=== PATIENT | female | born 1955 | race Caucasian/White ===

== ENCOUNTER 2016-11-26 15:17 | Emergency (ER) | payer BC, MEDICARE ==
[2016-11-26 16:23] LABS: Hematocrit 37.8 % (37.0-47.0); Hemoglobin 12.8 gm/dL (12.5-16.0); Mean Cell Volume 91.1 fl (78-100); Mean Corpuscular Hemoglobin 30.8 pg (27-31); Mean Corpuscular Hgb Conc 33.9 g/dl (32-36); Mean Platelet Volume 8.3 fl (6.0-9.5); Neutrophil # 4.2 K/mm3 (1.3-6.0); Neutrophil % 54.4 % (42-75.0); Platelet Count 352 K/mm3 (150-450); Red Blood Count 4.15 M/mm3 (4.2-5.4); Red Cell Distribution Width 12.4 % (11.5-14.0); White Blood Count 7.8 K/mm3 (4.0-10.5)
[2016-11-26 16:41] LABS: ALT 22 U/L (19-67); AST 13 U/L (0-48); Albumin * 3.7 gm/dl (3.4-5.0); Alkaline Phosphatase * 106 U/L (50-170); Anion Gap 11.3 mmol/L (6.8-13.8); Bilirubin, Total 0.3 mg/dL (0.0-1.1); Blood Urea Nitrogen 9 mg/dL (3-23); Ca. Corrected For Albumin 8.8 mg/dL (8.4-10.2); Calcium * 8.9 mg/dL (7.9-10.9); Carbon Dioxide 29.9 mmol/L (24-32.6); Chloride 107 mmol/L (97-106); Glucose * 113 mg/dL (70-110); Potassium 4.2 mmol/L (3.4-4.6); Sodium 144 mmol/L (132-142); Total Protein 7.4 gm/dL (6.2-8.2); Troponin I Less than 0.017 ng/ml (0.00-0.10)
--- NOTE | 2016-11-26 16:45 | ERNOTE ---
Medical Problem HPI - Narrative Date of Service: 11/26/16 - General Chief Complaint: General Assessment Time Seen by Provider: 11/26/16 15:42 Source: patient, family, RN notes reviewed Exam Limitations: no limitations - Immun/Allergies/Home Medications Immunizations: IMMUNIZATION HX Immunizations Up to Date Yes Allergies/Adverse Reactions: Allergies latex Allergy (Verified 11/26/16 15:35) Home Medications: HOME MEDICATIONS Amox Tr/Potassium Clavulanate [Augmentin 875-125 Tablet] 875 mg PO Q12H #20 tab 11/26/16 [Last Taken Unknown] Aspirin [Aspirin Enteric Coated] 81 mg PO DAILY 11/26/16 [Last Taken Unknown] Calcium Carbonate/Vitamin D3 [Calcium 500+D Tablet Chew] 2 each PO DAILY [Last Taken Unknown] Cyanocobalamin [Vitamin B-12] 1,000 mcg PO DAILY 11/26/16 [Last Taken Unknown] FLUoxetine HCL [Prozac] 60 mg PO DAILY 11/26/16 [Last Taken Unknown] Flaxseed Oil [Flax Seed Oil] 1,000 mg PO DAILY 11/26/16 [Last Taken Unknown] Fluconazole [Diflucan] 150 mg PO ONCE #2 tab 11/26/16 [Last Taken Unknown] Glucosam/Chondr/Collagn/Hyalur [Glucosamine & Chondroitin Cap] 1 each PO DAILY 11/26/16 [Last Taken Unknown] Iron,Carb/Vit C/Vit B12/Folic [Iron 100 Plus Tablet] 65 mg PO DAILY 11/26/16 [ Last Taken Unknown] Loratadine [Claritin] 10 mg PO DAILY 11/26/16 [Last Taken Unknown] Omeprazole [Prilosec] 20 mg PO DAILY 11/26/16 [Last Taken Unknown] Pravastatin Sodium [Pravachol] 20 mg PO DAILY 11/26/16 [Last Taken Unknown] Venlafaxine HCl [Effexor Xr] 150 mg PO DAILY 11/26/16 [Last Taken Unknown] Zolpidem Tartrate [Ambien] 10 mg PO HS PRN 11/26/16 [Last Taken Unknown] metFORMIN HCL [Glumetza] 2 tab PO BID 11/26/16 [Last Taken Unknown] - History of Present History Narrative: Allison is a 61 year old female who presents to the ED by private vehicle with her for "feeling crappy" for approximately a week. She had been on Januvia and read that it caused joint pain, so she discontinued it on her own. She then saw her PCP a few days later. She was feeling slightly better, so the symptoms were contributed to the medication. She has numerous vague complaints. She report diffuse chest pain that has been ongoing for several days that comes and goes. She also has pain in her left lower jaw. This has been ongoing for 3 or 4 months. She has even been to a dentist and an oral surgeon. She has not been taking anything for her symptoms. Review of Systems - Review of Systems Constitutional: Present: chills, fatigue, malaise, decreased activity level EYE: Present: no symptoms reported ENT: Present: nose congestion. Absent: ear pain, sore throat Respiratory: Present: shortness of breath, cough. Absent: wheezing Cardiology: Present: chest pain, palpitations. Absent: syncope, edema Gastrointestinal/Abdominal: Present: nausea. Absent: vomiting, diarrhea, abdominal pain Genitourinary: Absent: frequency, dysuria, hematuria Musculoskeletal: Present: muscle pain, neck pain. Absent: joint pain, joint swelling Skin: Absent: rash, lesions Neurological: Present: headache, dizziness/light-headedness Endocrine: Present: no symptoms reported Hematologic/Lymphatic: Present: no symptoms reported Psych: Present: no symptoms reported - Patient's Past Medical History Patient History - Medical: Diabetes Type 2, GERD Patient History - Cardiac/Respiratory: Arrhythmias - SVT treated with ablation, Hypertension, Hyperlipidemia Patient History - Cancer: No Hx of Cancer Patient History - Surgical Procedures: Hysterectomy LMP (females 10-50): Menopausal - Social History Living Situations: spouse Psych History: Hx of Depression Smoking Status: Never smoker Alcohol Use: none Drug Use: none - Immunizations Immunizations Up to Date: Yes Physical Exam - Physical Exam General Appearance: Present: wd/wn, alert, no apparent distress Head Exam: Present: normal inspection Eye Exam: Normal inspection: bilateral, PERRL: bilateral Ears, Nose, Throat: Present: normal ENT inspection Neck: Present: supple, full range of motion, tender lateral Respiratory: Present: no respiratory distress, normal breath sounds, no accessory muscle use, lungs clear Cardiovascular/Chest: Present: no murmur, normal peripheral pulses, irregularly irregular Gastrointestinal/Abdominal: Present: normal bowel sounds, nontender, nondistended, soft Extremity Exam: Present: normal inspection, normal range of motion, no edema Neurological Exam: Present: alert, oriented, normal mood/affect, no motor/ sensory deficits Skin Exam: Present: normal color, warm/dry ED Progress - Results and Orders Patient's Lab Results:: I have reviewed the patient's lab results. - Vital Signs Patient's Vital Signs:: I have reviewed the patient's vital signs. Vital Signs: Vital Signs 11/26/16 15:27 Temperature 36.0 C L Pulse Rate 81 Respiratory 14 Rate Blood Pressure 155/92 O2 Sat by Pulse 98 Oximetry - EKG EKG: NSR, RBBB EKG read: Reviewed by me - Progress/Reassessment Chief Complaint: General Assessment Progress:: Unchanged Plan - Plan Plan: No clear cause for the patient's symptoms despite her numerous complaints. Her labs are unremarkable. I will treat her for sinusitis d/t her nasal congestion, headaches, lightheadedness and nausea. To f/u if symptoms worsen or see her PCP if they persist despite treatment. Departure - Departure Clinical Impression: Sinusitis, acute Qualifiers: Sinusitis location: unspecified location Recurrence: non-recurrent Qualified Code(s): J01.90 - Acute sinusitis, unspecified Disposition: Home Follow Up Needed Condition: Stable Instructions: Sinusitis, Adult, [id number] Additional Instructions: Rest and drink plenty of fluids Continue your routine medications Return if symptoms worsen, or follow up with your doctor as needed Referrals: Meño Gonzales MD [Primary Care Provider] - Prescriptions: Amox Tr/Potassium Clavulanate [Augmentin 875-125 Tablet] 875 mg PO Q12H #20 tab Fluconazole [Diflucan] 150 mg PO ONCE #2 tab
[2016-11-26 16:47] LABS: Urine Bilirubin Negative (NEGATIVE); Urine Ketone Negative (NEGATIVE); Urine Nitrite Negative (NEGATIVE); Urine Protein Negative (NEGATIVE); Urine Specific Gravity <=1.005 SP.GR. (1.005-1.010); Urine Urobilinogen Normal (NORMAL); Urine pH 5.5 pH (5.0-7.0)
[2016-11-26 16:59] LABS: Urine Appearance Clear; Urine Blood 5 /ul (NEGATIVE); Urine Color Yellow
[2016-11-26 17:00] LABS: Urine Bacteria TRACE; Urine RBC None Seen /hpf (0-5); Urine WBC None Seen /hpf (0-5)
[2016-11-26] MEDS ORDERED: AMOX TR/POTASSIUM CLAVULANATE 875 MG TABLET PO ONE (17:33)
[2016-11-26] MEDS ORDERED: AMOX TR/POTASSIUM CLAVULANATE 500 MG TABLET ONE (17:39)
[2016-11-26] MEDS ORDERED: AMOX TR/POTASSIUM CLAVULANATE 875 MG TABLET ONE (17:43)
[2016-11-26 18:06] VITALS: BP 134/83
== END 2016-11-26 17:45 | disposition home or self-care (01) ==
LOC: ER 15:17
DX: J01.90 Acute sinusitis, unspecified (principal); E11.9 Type 2 diabetes mellitus without complications; K21.9 Gastro-esophageal reflux disease without esophagitis; I10 Essential (primary) hypertension; E78.5 Hyperlipidemia, unspecified